=== PATIENT | male | born 1960 | race Caucasian/White ===

== ENCOUNTER 2019-03-20 15:52 | Emergency (ER) | payer OTHER ==
[2019-03-20] MEDS ORDERED: methylPREDNISolone Sod Succ/PF 125 MG/2 ML VIAL ONE (16:39)
== END 2019-03-20 19:25 | disposition home or self-care (01) ==
LOC: ERS 15:52
DX: T63.461A Toxic effect of venom of wasps, accidental (unintentional), initial encounter (principal); I10 Essential (primary) hypertension; K21.9 Gastro-esophageal reflux disease without esophagitis; Z79.899 Other long term (current) drug therapy
CPT/HCPCS: 94760; 96374; J2930

== ENCOUNTER 2019-05-27 14:35 | Emergency (ER) | payer OTHER ==
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
[2019-05-27] MEDS ORDERED: Ketorolac Tromethamine 30 MG/ML VIAL ONE (16:47)
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
== END 2019-05-27 17:25 | disposition home or self-care (01) ==
LOC: ERS 14:35
DX: S00.01XA Abrasion of scalp, initial encounter (principal); S30.811A Abrasion of abdominal wall, initial encounter; I10 Essential (primary) hypertension; K21.9 Gastro-esophageal reflux disease without esophagitis; Z79.899 Other long term (current) drug therapy; V89.2XXA Person injured in unspecified motor-vehicle accident, traffic, initial encounter
CPT/HCPCS: 70450; 72040; 72125; 96372; J1885